=== PATIENT | male | born 1995 | race Caucasian/White ===

== ENCOUNTER 2025-05-24 11:07 | Emergency (ER) | payer OTHER, SELFPAY ==
[2025-05-24 11:13] VITALS: BP 124/86; PULSE 84; RESP 18; TEMP 36.3; O2SAT 98; BMI 47.7
--- NOTE | 2025-05-24 11:21 | ED.EAR ---
HPI - Ear Problem General Time Seen by Provider: 11:21 Date Seen: 05/24/25 Chief complaint: Ear/Nose/Throat Problem Stated complaint: Thinks Right Ear Infection Time Seen by Provider: 05/24/25 11:13 Source: patient and RN notes reviewed Mode of arrival: ambulatory Limitations: no limitations History of Present Illness HPI Narrative: This 29-year-old male is coming in with ear pain that was worse yesterday, now having ear drainage. Yesterday he had bad right ear pain. Woke with some bloody drainage on the pillow and feels like the ear has released some pressure. He has had no fevers. He had a little nasal congestion maybe last week but denies any significant cough or cold symptoms. He states he had ear infections as a child, did not have any ear tube placement ever. He does have some seasonal allergies. He has been on no recent antibiotics. He has not been swimming. MD Complaint: ear pain and ear discharge Location: right ear Related Data Previous Rx's ?Medication ?Instructions ?Recorded amoxicillin 875 mg tablet 875 mg PO BID #14 tabs 05/24/25 ciprofloxacin 0.3 %-dexamethasone 4 drp Otic (ear-right) BID 7 days 05/24/25 0.1 % ear drops,suspension #7.5 mL Allergies Allergy/AdvReac Type Severity Reaction Status Date / Time No Known Drug Allergies Allergy Verified 05/24/25 11:19 Review of Systems Narrative: As per HPI. Exam Const: Vital Signs, click to edit/add: Vital Signs - 24 hr 05/24/25 11:13 Temperature 97.4 F L Pulse Rate [Pulse Oximeter] 84 Respiratory Rate 18 Blood Pressure [Ri ght Upper Arm] 124/86 Pulse Oximetry 98 Oxygen Delivery Me thod Room Air This 29-year-old male is seen in exam room for. He is sitting in the chair comfortably. He is alert, interactive, no apparent distress. Pupils equal round, sclera clear, symmetrical facial function. Anterior nares normal. Oropharynx normal without any exudates or erythema. He has some workup prelim it drainage in the right canal with a little blood streaking. The tympanic membrane is not completely visualized due to the drainage in the canal. He has no pain on palpation of the tragus. Left TM canal are normal, no evidence of infection, tympanic membrane is translucent without fluid. CV regular rate and rhythm, no murmur. Documenting provider has reviewed patient's vital signs: yes Course Course ED Course: Have reviewed with patient that he had a middle ear infection that has perforated on its own. He understands that he needs to follow up to have the ear recheck to make sure the perforation has sealed off. He could have hearing issues if the perforation does not close on its own. Likewise if symptoms are not improving or there are concerns with ongoing symptoms, he is to seek re-evaluation. His pharmacy in [facility], will send his prescription to [facility]. Will give him appropriate patient education handouts. Vital Signs Vital signs: Initial Vital Signs Temperature 97.4 F L 05/24/25 11:13 Temperature Source Temporal Artery Scan 05/24/25 11:13 Pulse Rate 84 05/24/25 11:13 Respiratory Rate 18 05/24/25 11:13 Blood Pressure 124/86 05/24/25 11:13 Blood Pressure Mean 98 05/24/25 11:13 Blood Pressure Position Sitting 05/24/25 11:13 Pulse Oximetry 98 05/24/25 11:13 Oxygen Delivery Method Room Air 05/24/25 11:13 Vital Signs Temperature 97.4 F L 05/24/25 11:13 Pulse Rate 84 05/24/25 11:13 Respiratory Rate 18 05/24/25 11:13 Blood Pressure 124/86 05/24/25 11:13 Pulse Oximetry 98 05/24/25 11:13 Oxygen Delivery Method Room Air 05/24/25 11:13 Temperature 97.4 F L 05/24/25 11:13 Pulse Rate 84 05/24/25 11:13 Respiratory Rate 18 05/24/25 11:13 Blood Pressure 124/86 05/24/25 11:13 Pulse Oximetry 98 05/24/25 11:13 Oxygen Delivery Method Room Air 05/24/25 11:13 Discharge Plan Discharge Clinical Impression: Acute otitis media of right ear with perforation Patient Disposition: Home, Self-Care Condition: Stable Instructions: Ruptured Eardrum (ED), How to Use Ear Drops (ED), Ear Infection (ED) Additional Instructions: Need to use ear drops an oral antibiotic as prescribed. You need a recheck of your ear in clinic in 2-3 weeks to ensure closure of the perforation or before this time frame if not improving/concerns. Review handouts. If you have some discomfort, certainly can use Tylenol and/or ibuprofen per bottle directions. Just make sure you seek re-evaluation if symptoms are not improving or you feel they are worsening. Activity Level: Activity as Tolerated Prescriptions: New amoxicillin 875 mg tablet 875 mg PO BID Qty: 14 0RF ciprofloxacin-dexamethasone 0.3-0.1 % drops,suspension 4 drp Otic (ear-right) BID 7 Days Qty: 7.5 0RF Stand Alone Forms: [facility] Info Instructions
== END 2025-05-24 11:45 | disposition home or self-care (01) ==
LOC: ED 11:39
PROVIDERS: Emergency Provider Family Medicine
DX: H66.91 Otitis media, unspecified, right ear (principal); H72.91 Unspecified perforation of tympanic membrane, right ear
CPT/HCPCS: 99283